=== PATIENT | male | born 1970 | race Caucasian/White ===

== ENCOUNTER 2023-02-04 07:21 | Outpatient (REF) | payer BC, SELFPAY ==
--- NOTE | ~2023-02-04 | MR_ITS ---
EXAMINATION: MR BRAIN WITHOUT CONTRAST CLINICAL INFORMATION: Gait disorder COMPARISON: None TECHNIQUE: Multiplanar multisequence MR imaging of the brain was obtained without intravenous contrast. FINDINGS: There is no acute infarct on diffusion-weighted imaging. There is no intracranial hemorrhage on iron-sensitive imaging. No extra-axial collection or mass effect/herniation. Normal parenchymal signal characteristics. No hydrocephalus. The ventricles are normal in morphology and size. The major flow voids at the skull base are preserved. The midline structures are normal. The cerebellar tonsils are normally positioned. The craniocervical junction is normal. Marrow signal is within normal limits. The visualized soft tissues are without significant abnormality. No signal abnormality within the paranasal sinuses or within the mastoid air cells. MR/MR head/brain wo con IMPRESSION: Unremarkable noncontrast MRI of the brain.
== END 2023-02-04 07:22 | disposition home or self-care (01) ==
LOC: HO.MRI 07:21
PROVIDERS: PCP Internal Medicine; Visit Provider Psychiatry & Neurology Neurology
DX: R26.9 Unspecified abnormalities of gait and mobility (principal)
CPT/HCPCS: 70551